=== PATIENT | female | born 1990 | race African-American/Black ===

== ENCOUNTER 2024-12-22 12:16 | Emergency (ER) | payer MEDICAID ==
[~2024-12-22] VITALS: Ht 175.3 cm; Wt 55.0 kg
[2024-12-22 12:20] VITALS: O2SAT 98
[2024-12-22] MEDS: SODIUM CHLORIDE 0.9% 1,000 ML IV ONE (12:40)
[2024-12-22 14:51] VITALS: BP 116/82; PULSE 105; RESP 18; TEMP 36.9; O2SAT 99
== END 2024-12-22 14:55 | disposition home or self-care (01) ==
LOC: ER 12:16
DX: F10.129 Alcohol abuse with intoxication, unspecified (principal); Y90.9 Presence of alcohol in blood, level not specified
CPT/HCPCS: 96360; 99283; J7030; Z7610 ×2